=== PATIENT | female | born 1990 | race Two or more races ===

== ENCOUNTER → 2020-05-06 | Emergency (ER) | payer MEDICAID ==
[~2020-05-06] VITALS: Ht 167.6 cm; Wt 59.9 kg
[~2020-05-06] MED LIST: Acetaminophen 500mg (ES) tab ORAL ONE; LIDODERM700 M1 TOPIC; Methocarbamol 750mg tab ORAL ONE; ROBAXIN-750750 MG PO; TYLENOL EXTRA500 MG ORAL
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
[2020-05-06 21:55] VITALS: BP 133/88
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
--- NOTE | 2020-05-06 22:44 | Diagnostic Imaging Report ---
EXAM: XR Left Shoulder Complete, 2 or More Views CLINICAL HISTORY: PAIN TECHNIQUE: Two or more views of the left shoulder. COMPARISON: No relevant prior studies available. FINDINGS: Bones/joints: No acute fracture. No dislocation. 4.6 mm round radiopaque opacity projecting over the left upper lobe/scapula likely representing a bone island versus calcified granuloma. Partially visualized thoracic spine levoscoliosis. Soft tissues: Unremarkable. IMPRESSION: No acute fracture or dislocation.
[2020-05-06 23:25] VITALS: BP 129/78
--- NOTE | 2020-05-06 23:26 | NUR ---
ER DISCHARGE NOTE: Patient is cleared to be discharged per ERMD, pt is aox4, on room air, with stable vital signs. pt was given dc and prescription instructions, pt was able to verbalize understanding, pt id band and without complications. pt is able to ambulate with steady gait. pt took all belongings. pt left the hospital with her sister.
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
== END | disposition home or self-care (01) ==
LOC: EMR 22:00 → EEVIPCON 22:00
DX: H92.02 Otalgia, left ear (principal); M25.512 Pain in left shoulder; V43.52XA Car driver injured in collision with other type car in traffic accident, initial encounter; Y92.410 Unspecified street and highway as the place of occurrence of the external cause
CPT/HCPCS: 70450; 73030; Z7502; 99284